=== PATIENT | female | born 1945 | race Caucasian/White ===

== ENCOUNTER 2021-11-25 18:17 | Emergency (ER) | payer MEDICARE, OTHER | END 2021-11-25 20:00 | disposition home or self-care (01) | LOC: FER 18:17 | DX: S81.812A Laceration without foreign body, left lower leg, initial encounter (principal); I10 Essential (primary) hypertension; Z23 Encounter for immunization; Z88.0 Allergy status to penicillin; X58.XXXA Exposure to other specified factors, initial encounter; Y92.007 Garden or yard of unspecified non-institutional (private) residence as the place of occurrence of the external cause | CPT/HCPCS: 90471; 90715 ==

== ENCOUNTER 2022-02-13 14:36 | Emergency (ER) | payer MEDICARE, OTHER ==
[2022-02-13 18:39] LABS: BASOPHIL 0.1 % (0-2); EOSINOPHIL 0.3 % (0-7); HCT 38.1 % (37.0-47.0); HGB 12.6 g/dl (12.5-16.0); LYMPHOCYTE 19.3 % (15-48); MCH 29.6 pg (25.0-31.0); MCHC 33.1 g/dL (32.0-36.0); MCV 89.4 fL (78.0-100.0); MONOCYTE 11.7 % (0-12); MPV 9.9 fL (6.0-9.5); NEUTROPHIL 68.2 % (41-80); NRBC 0; PLT 249 K/uL (150-400); RBC 4.26 M/uL (4.20-5.40); RDW 11.6 % (11.5-14.0); WBC 6.7 K/uL (4.0-10.5)
[2022-02-13 18:46] LABS: BILIRUBIN 1+ mg/dL (NEGATIVE); BLOOD TRACE-INTACT Ery/uL (NEGATIVE); CLARITY CLEAR (CLEAR); COLOR YELLOW (YELLOW); GLUCOSE (U) NORMAL (NORMAL); LEUKOCYTES NEGATIVE Leu/uL (NEGATIVE); NITRITE NEGATIVE (NEGATIVE); PROTEIN TRACE (LOW) mg/dL (NEGATIVE); UROBILINOGEN 0.2 mg/dL (0.2-1.0)
[2022-02-13 18:52] LABS: AMORPHOUS URATES CRYSTALS TRACE; BACTERIA TRACE; MUCOUS LARGE; SQUAMOUS EPITHELIAL CELLS RARE
[2022-02-13 19:05] LABS: ALBUMIN 2.9 g/dL (3.4-5.0); BILIRUBIN - TOTAL 0.4 mg/dL (0.2-1.0); BUN/CREAT RATIO (CALC) 10.4 RATIO; CREATININE 1.06 mg/dL (0.51-0.95); GLOBULIN (CALCULATION) 3.6 g/dL; POTASSIUM 2.9 mmol/L (3.5-5.1); TOTAL PROTEIN 6.5 g/dL (6.4-8.2)
[2022-02-14 02:02] LABS: BUN/CREAT RATIO (CALC) 8.6 RATIO; CREATININE 0.93 mg/dL (0.51-0.95); POTASSIUM 3.6 mmol/L (3.5-5.1)
== END 2022-02-14 04:00 | disposition home or self-care (01) ==
LOC: FER 14:36
PROVIDERS: Emergency Medicine; Nurse Practitioner Family
DX: K52.9 Noninfective gastroenteritis and colitis, unspecified (principal); Z88.0 Allergy status to penicillin; Z91.018 Allergy to other foods; Z91.038 Other insect allergy status
CPT/HCPCS: 36415; 80048; 80053; 81001; 85025; 87324; 87449; J3475; J3480; J7030; J7050